=== PATIENT | female | born 1975 | race Caucasian/White ===

== ENCOUNTER 2023-01-15 12:33 | Emergency (ER) | payer BC ==
[~2023-01-15] VITALS: Ht 165.1 cm; Wt 81.8 kg
[2023-01-15 12:37] VITALS: BP 135/70
[2023-01-15] MEDS ORDERED: ONDA4TAB12 PO (13:51)
[2023-01-15] MEDS ORDERED: ATI1T PO (13:51)
== END 2023-01-15 14:38 | disposition home or self-care (01) ==
LOC: ER 12:34
DX: F41.9 Anxiety disorder, unspecified (principal); Z72.89 Other problems related to lifestyle; Z79.899 Other long term (current) drug therapy
CPT/HCPCS: 99283

== ENCOUNTER 2023-01-30 14:26 | Emergency (ER) | payer BC ==
[~2023-01-30] VITALS: Ht 165.1 cm; Wt 8.2 kg
[~2023-01-30 14:26] MED LIST: ATI1T PO; ONDA4TAB12 PO
[2023-01-30 16:13] LABS: BASOPHILS % (AUTO) 0.4 % (0-1); EOSINOPHILS # (AUTO) 0.1 X10'3 (0-0.9); EOSINOPHILS % (AUTO) 0.5 % (0-6); HEMATOCRIT 43.2 % (35.0-45.0); HEMOGLOBIN 14.6 g/dl (12.0-16.0); LYMPHOCYTES # (AUTO) 2.8 X10'3 (1.1-4.8); LYMPHOCYTES % (AUTO) 29.2 % (21-51); MEAN CORPUSCULAR HEMOGLOBIN 28.1 PG (27.0-31.0); MEAN CORPUSCULAR HGB CONC 33.9 g/dL (33.0-36.5); MEAN CORPUSCULAR VOLUME 82.8 FL (78-98); MEAN PLATELET VOLUME 8.5 FL (7.4-10.4); MONOCYTES # (AUTO) 0.6 X10'3 (0-0.9); MONOCYTES % (AUTO) 5.9 % (2-12); NEUTROPHILS # (AUTO) 6.1 X10'3 (1.8-7.7); PLATELET COUNT 350 X10'3 (140-440); RED BLOOD COUNT 5.22 X10'6 (4.20-5.60); RED CELL DISTRIBUTION WIDTH 12.9 % (11.5-14.5); WHITE BLOOD COUNT 9.6 X10'3 (4.5-11.0)
[2023-01-30 16:17] LABS: COLOR,URINE YELLOW (Yellow); GLUCOSE, URINE NEGATIVE (Neg); KETONES,URINE NEGATIVE (Neg); LEUKOCYTE ESTERASE ,URINE NEGATIVE (Neg); NITRITES, URINE NEGATIVE (Neg); OCCULT BLOOD,URINE NEGATIVE (Neg); PH,URINE 5.5 (4.8-8.0); PROTEIN,URINE NEGATIVE (Neg); UROBILINOGEN,URINE 0.2 E.U/dL (0.2-1.0)
[2023-01-30 16:22] LABS: ALANINE AMINOTRANSFERASE 60 U/L (12-78); ALBUMIN 4.3 G/DL (3.4-5.0); ALBUMIN/GLOBULIN RATIO 1.2 (1.1-1.5); ALKALINE PHOSPHATASE 87 IU/L (46-116); ANION GAP 11 (8-16); ASPARTATE AMINO TRANSFERASE 34 U/L (10-37); BILIRUBIN,TOTAL 0.4 MG/DL (0.1-1.0); BLOOD UREA NITROGEN 10 MG/DL (7-18); BUN/CREATININE RATIO 14.7 (10.0-20.0); CALCIUM 9.9 MG/DL (8.5-10.1); CHLORIDE 102 MMOL/L (99-107); CREATININE 0.68 MG/DL (0.40-0.90); GLUCOSE 99 MG/DL (70-104); LIPASE 128 U/L (73-393); POTASSIUM 3.8 MMOL/L (3.5-5.1); SODIUM 142 MMOL/L (135-145); TOTAL CARBON DIOXIDE 29.5 MMOL/L (24-32); TOTAL PROTEIN 7.8 G/DL (6.4-8.2); eGFR > 90 ML/MIN
[2023-01-30 16:23] LABS: URINE HCG NEGATIVE (NEG)
[2023-01-30 16:43] LABS: UA COLLECTION TYPE CLN CATCH MIDSTREAM
[2023-01-30 16:44] LABS: CLARITY,URINE SLIGHTLY CLOUDY (Clear); WBC,URINE 0-4 /HPF (0-4)
[2023-01-30 16:45] LABS: BACTERIA,URINE FEW /HPF (Neg); MUCUS STRANDS FEW /LPF (Neg); RBC,URINE NONE SEEN /HPF (0-2); SQUAMOUS EPITHELIAL CELL,UR MODERATE /LPF (FEW)
[2023-01-30] MEDS ORDERED: LIDOcaine Viscous 15ml cup MM ONE (19:00)
[2023-01-30] MEDS ORDERED: mag hydrox/Alum hydrox/simeth 30ml oral suspension PO ONE (19:00)
[2023-01-30] MEDS ORDERED: pantoprazole 40mg Tablet.DR PO ONE (19:00)
[2023-01-30] MEDS ORDERED: ondansetron 4mg rapidly disintigrating tab PO ONE (19:00)
[2023-01-30 19:30] VITALS: BP 133/81
[2023-01-30] MEDS ORDERED: PANT20TA18 PO (19:30)
[2023-01-30] MEDS ORDERED: ONDA4TAB12 PO (19:30)
== END 2023-01-30 20:00 | disposition home or self-care (01) ==
LOC: ER 14:28
DX: R11.2 Nausea with vomiting, unspecified (principal); R10.84 Generalized abdominal pain
CPT/HCPCS: 36415; 80053; 81001; 81025; 83690; 85025; 99283